=== PATIENT | female | born 1960 | race Two or more races ===

== ENCOUNTER 2022-01-30 19:04 | Emergency (ER) | payer OTHER ==
[~2022-01-30] VITALS: Ht 172.7 cm; Wt 103.4 kg
[2022-01-30] MEDS ORDERED: NORVASC2.5 M1 PO (19:46)
[2022-01-30] MEDS ORDERED: LEVO-T137 MCG PO (19:46)
[2022-01-30] MEDS ORDERED: ADULT LOW DOSE81 M1 PO (19:47)
[2022-01-30] MEDS ORDERED: COZAAR25 MG PO (19:47)
[2022-01-30] MEDS ORDERED: SIMVASTATIN10 MG PO (19:47)
[2022-01-30] MEDS ORDERED: ATARAX10 MG PO (19:47)
== END 2022-01-30 23:44 | disposition home or self-care (01) ==
LOC: ER 19:04
DX: R53.81 Other malaise (principal); R53.1 Weakness; I10 Essential (primary) hypertension; E03.9 Hypothyroidism, unspecified; Z88.0 Allergy status to penicillin

== ENCOUNTER 2022-09-30 11:34 | Emergency (ER) | payer OTHER ==
[~2022-09-30] VITALS: Ht 172.7 cm; Wt 104.3 kg
[~2022-09-30 11:34] MED LIST: ADULT LOW DOSE81 M1 PO; ATARAX10 MG PO; COZAAR25 MG PO; LEVO-T137 MCG PO; NORVASC2.5 M1 PO; SIMVASTATIN10 MG PO
== END 2022-09-30 15:33 | disposition home or self-care (01) ==
LOC: ER 11:34
DX: R51.9 Headache, unspecified (principal); R53.81 Other malaise; Z88.0 Allergy status to penicillin

== ENCOUNTER 2022-12-01 20:34 | Inpatient (IN) | payer OTHER ==
[~2022-12-01] VITALS: Ht 172.7 cm; Wt 227.7 kg
== END 2022-12-02 12:39 | disposition home or self-care (01) | DRG 392 ==
LOC: ER → MEDI 22:33
PROVIDERS: ADMIT Internal Medicine; ATTEND Internal Medicine
DX: A09 Infectious gastroenteritis and colitis, unspecified (principal); E86.0 Dehydration; R63.8 Other symptoms and signs concerning food and fluid intake; Z20.822 Contact with and (suspected) exposure to COVID-19